=== PATIENT | male | born 1965 | race Caucasian/White ===

== ENCOUNTER 2017-03-01 08:11 | Emergency (ER) | payer OTHER ==
[~2017-03-01 08:11] MED LIST: ACTOS45 MG PO; GLIPIZIDE5 MG PO; GLUCOPHAGE500 MG PO; LEVAQUIN500 MG PO; LOVASTATIN10 M1 PO; PAXIL10 MG PO; PRILOSEC20 MG PO; PRINIVIL5 MG PO
--- NOTE | 2017-03-01 09:03 | DIAGNOSTIC IMAGING REPORT ---
PROCEDURE: XR FOOT 3 VIEWS - RIGHT INDICATION: TRAUMA/INJURY TECHNIQUE: Three views. COMPARISON: None. FINDINGS: Osseous structures, joint spaces and soft tissues are normal. IMPRESSION: 1. Normal right foot.
--- NOTE | 2017-03-01 09:58 | ED CLINICAL REPORT ---
Clinical Report - Physicians/Mid Levels [facility] [address] [place] [address] 03/01/2017 8:12 Patient: EDA SKY Time Seen: 09:00. Arrived- By private vehicle. Historian- patient. HISTORY OF PRESENT ILLNESS Chief Complaint: Injury to the right foot. The injury happened last night. The patient sustained a severe crush injury- dropped object on foot (ramp from I rental truck was dropped on his foot). Occurred on a street. Patient is experiencing severe pain. No other injury. REVIEW OF SYSTEMS The patient complains of pain on weight bearing. He has had swelling. He has had new onset of weakness of the right 1st toe (severe) and right 2nd toe (moderate). No tingling or numbness. All systems otherwise negative, except as recorded above. SOCIAL HISTORY Current every day light tobacco smoker (cigarette)- less than 1/2 a pack per day. No alcohol use or drug use. FAMILY HISTORY No significant family medical history. ADDITIONAL NOTES The nursing notes have been reviewed. PHYSICAL EXAM Vital Signs: 03/01/2017 08:18 BP: 159/89. HR: 82. RR: 18. O2 saturation: 100%. Temp: 97.6 F. Pain level now: 7/10. Have been reviewed. Appearance: Alert. Appears to be in pain. Head: Head atraumatic. Eyes: Pupils equal, round and reactive to light. ENT: Pharynx normal. Neck: Normal inspection. Neck supple. CVS: Normal heart rate and rhythm. Heart sounds normal. Respiratory: No respiratory distress. Breath sounds normal. Abdomen: No visible injury. Soft and nontender. Bowel sounds normal. No organomegaly. No mass. Back: ROM normal. Skin: Skin warm and dry. Extremities: Tip of right great toe: moderate tenderness and swelling nail partially avulsed. No subungual hematoma of right great toe. Tip of right second toe: moderate tenderness and mild swelling. Neuro, Vascular and Tendons: Vascular status intact. Tendon function intact. Gait: Limping gait. LABS, X-RAYS, AND EKG X-Rays: Right foot negative. The X-rays were interpreted by the radiologist and contemporaneously by me. PROGRESS AND PROCEDURES Course of Care: Patient is stable. Patient/family counseled. Old medical records reviewed. Disposition: Discharged. Condition: stable. CLINICAL IMPRESSION Contusion to the right foot, right great toe with toenail injury and right 2nd toe with toenail injury. INSTRUCTIONS Apply ice for 20 minutes four times a day. Don't apply ice directly to skin and don't use while asleep. Wear post-op shoe until released. No driving or operating machinery while taking medication. Sedative medication was given during your visit. You may walk and bear weight as tolerated. Warnings: COMPLICATIONS: Complications from this condition include: possible infection. Future problems may include infection, scarring, pain and deformity. INFECTION: Watch for signs of infection (increasing heat and redness, pus-like drainage, swelling, or increased pain). Return or see your doctor if these signs occur. It is important to follow up with a physician for further evaluation and treatment. INFECTION: Watch for signs of infection (increasing heat and redness, pus-like drainage, swelling, or increased pain). Return or see your doctor if these signs occur. TETANUS: You were given a tetanus shot during your visit. Make a note for future reference. GENERAL WARNINGS: Return or contact your physician immediately if your condition worsens or changes unexpectedly, if not improving as expected, or if other problems arise. Your Current Medications: CONTINUE TAKING THE FOLLOWING MEDICATIONS: Lantus Subcutaneous : 30 units at bedtime. Lipizide 10 mg daily*. Lisinopril 10 mg daily*. Lovastatin daily *. Metformin 1000 mg BID*. Omeprazole 20 mg bid*. Paxil Oral : 37.5 mg daily. Prescription Medications: Vicodin 5 mg / 300 mg: take 1 to 2 orally every 6 hours as needed for pain. Dispense fifteen (15). No refills. Substitution is permissible. Understanding of the discharge instructions verbalized by patient. Follow-up with: Mark White DPM, Podiatry, , [facility], [address] [place] [address], [address] [place] [address] Follow up in four days. Call for the next available appointment. (Electronically signed by Dylan Mcrae MD 03/03/2017 2:48)
--- NOTE | 2017-03-01 09:58 | ED ORDER SUMMARY ---
..... Patient: EDA SKY OrderSheet [facility] VisitID: [id number] [place] [address] 52y, M Registration Date/Time: 03/01/2017 ORDER SHEET Weight: 122.4 kg (stated) Allergies: No Known Drug Allergy GENERAL ORDERS: Foot 3V Right Urgent (08:28 03/01/2017 JSanders R.N. per protocol) (Ack 8:35 Heather) (9:01 JSanders R.N.) Orthopedic Shoe (09:41 03/01/2017 Ngozi TRUJILLO) (Ack 9:59 ALEXXanders R.N.) (10:06 JSanders R.N.) MEDICATION ORDERS: Hydrocodone-APAP PO 5/325 mg (NOW, HIGH ALERT MEDICATION) (09:33 03/01/2017 Ngozi TRUJILLO) (9:36 JSanders R.N.) Tdap IM 0.5 mL (NOW) (09:58 03/01/2017 Ngozi TRUJILLO) (Ack 10:01 ALEXXanders R.N.) (10:06 ALEXXanders R.N.) IV FLUIDS: ORDER SHEET NOTES: [Electronically signed by Isabel Ghosh R.N. (15:59 03/01/2017)] [Electronically signed by Dylan Mcrae MD (02:48 03/03/2017)] [Electronically locked/signed by Isabel Ghosh R.N. (15:59 03/01/2017)]
--- NOTE | 2017-03-01 09:58 | ED NURSING NOTES ---
Clinical Report - Nurses [facility] [address], [place] [address] 03/01/2017 8:12 [id number] Triage time 08:Mar 01 2017. Acuity: LEVEL 4. Chief Complaint: RIGHT LOWER EXTREMITY PAIN, SWELLING and REDNESS. Location of symptoms- (Helping a friend move last night and ramp fell on Right foot). 08:24 03/01/17. SEPSIS SCREEN: Sepsis Screen. Negative (no infection suspected/documented). ELOISA COMA SCORE: [place] Coma Scale: 15- eyes open spontaneously (4); best verbal response- oriented x 4 (5); best motor response- obeys commands (6). --08:24 Isabel Ghosh R.N. 08:18 03/01/17. BP: 159/89 (regular adult cuff) taken on the left arm, while sitting. HR: 82. RR: 18. O2 saturation: 100% on room air. Temp: 97.6 F (oral). Pain level now: 05/17. --08:24 Isabel Ghosh R.N. Weight: 122.4 kg stated. Height/Length: 74 inches Per Patient. BMI: 34.7. --08:22 Isabel Ghosh R.N. Medications Lantus Subcutaneous 30 units, at bedtime. Lipizide 10 mg daily. Lisinopril 10 mg daily. Lovastatin daily . Metformin 1000 mg BID. Omeprazole 20 mg bid. Paxil Oral 37.5 mg, daily. --08:21 Isabel Ghosh R.N. Allergies No Known Drug Allergy. --08:22 Isabel Ghosh R.N. History Arrived by private vehicle. Historian: patient. Injury occurred. This occurred last night. Occurred at friend's house. He has had trouble walking. Treatment TOWER HAND: Ice. PAST MEDICAL HX: Diabetes mellitus. Hypertension. Tetanus status: up-to-date. SOCIAL HX: Current every day light tobacco smoker- less than 1/2 a pack per day. No alcohol use or drug use. No infectious disease exposure. ABUSE ASSESSMENT: No report of abuse. --08:24 Isabel Ghosh R.N. PROBLEMS: Lumbar Radiculopathy. Head Injury. Hypercholesterolemia. Neck Pain. Depression. Chronic Back Pain. Back Injury. Neck Injury. Cervical Strain. Gastroesophageal Reflux. Insomnia. Upper Extremity Pain. Carpal Tunnel Syndrome. Hypertension. Diabetes Mellitus. --08:22 Isabel Ghosh R.N. ADDITIONAL SURGERIES: Left thumb partial amputation. Right ankle surgery after fx. Tonsillectomy & Adenoidectomy. --08:22 Isabel Ghosh R.N. Interventions ID band on patient. To treatment room. --08:24 Isabel Ghosh R.N. PHYSICAL ASSESSMENT 08:03/01/17. Ambulatory to room. GENERAL / NEURO / PSYCH: Oriented X 4. Appears in no acute distress. Appears in pain. EXTREMITIES: Small area of erythema with tenderness on the extremities. Extremity pulses are within normal limits. Extremities exhibit normal ROM. No lower extremity edema. Right big toe: tenderness, erythema and laceration with controlled bleeding. Right second toe: tenderness and erythema. SKIN: Skin is warm. --08:26 Isabel Ghosh R.N. NURSING PROGRESS NOTES 08:03/01/17. The plan of care for this patient has been created. Cold pack applied. Extremity elevated. Reassurance given. Two patient identifiers checked. Call light placed in reach. Side rails up x 1. Bed placed in lowest position. Brakes of bed on. Patient ready for evaluation- chart flagged and ED physician notified. Care transferred and report given. --08:26 Isabel Ghosh R.N. ( Xray in with patient). --08:45 Isabel Ghosh R.N. 09:02 03/01/17. ( Xray is finished with patient). --09:02 Isabel Ghosh R.N. 09:23 03/01/17. ( Patient resting, anxious to leave. Offered blanket, he declined). --09:23 Isabel Ghosh R.N. 09:29 03/01/17. --09:29 Isabel Ghosh R.N. 09:28 03/01/17. BP: 131/77 (regular adult cuff) taken on the left arm, while sitting. HR: 87. RR: 18 (regular). O2 saturation: 100% on room air. Pain level now: 06/17. --09:29 Isabel Ghosh R.N. 09:36 03/01/2017 Hydrocodone-APAP (Hydrocodone-Acetaminophen) PO 5/325 mg Tablets 1 tab given. Allergies verified, confirmed 5 rights and sedative warning given to the patient. --09:36 Isabel Ghosh R.N. 09:37 03/01/17. ( Patients right foot placed in basin with hibiclense and normal saline to cleanse foot). --09:37 Isabel Ghosh R.N. 10:05 03/01/2017 TDAP IM 0.5 mL given. (Lot#: [id number], expiration date: 08/15/2018, Work Checker: [employer] pasteur). Given in the right deltoid. Allergies verified and confirmed 5 rights. Vaccine information statement provided to the patient. --10:06 Isabel Ghosh R.N. Ortho shoe applied to right foot by tech; distal pulses intact, sensation intact and motor function within normal limits. --10:07 Colleen Jennyfer. DISPOSITION / DISCHARGE Departure time: 1010 AM. Condition at departure: improved and stable. The goals identified in the patient's plan of care were met. No learning barriers present. Discharge instructions provided and reviewed with the patient. Reviewed medication(s) side effects, precautions, dosing and course information. Prescription(s) given to the patient. Reviewed foot care instructions. Activity restrictions (rest) reviewed. Work note given. Patient verbalized understanding. Written instructions provided in Thai. No warning instructions or follow up contact number given. The patient was discharged by the physician. He was discharged home and unaccompanied at time of discharge. He left the Emergency Department ambulatory and via private vehicle. Patient driving. FALL RISK ASSESSMENT: Fall risk assessment completed. No fall risk identified. --10:10 Awilda Sin R.N. 10:05 03/01/17. BP: 132/77 (regular adult cuff) taken on the left arm, via an automated monitor, while standing. HR: 89. RR: 16 (regular and unlabored). O2 saturation: 97% on room air. Temp: 98 F (oral). Pain level now: 02/15. --10:10 Awilda Sin R.N. Locked/Released at 03/01/2017 15:59 by Isabel Ghosh R.N.
--- NOTE | 2017-03-01 09:58 | ED CLINICAL REPORT ---
Clinical Report - Physicians/Mid Levels [facility] [address] [place] [address] 03/01/2017 8:12 Patient: EDA SKY Time Seen: 09:00. Arrived- By private vehicle. Historian- patient. HISTORY OF PRESENT ILLNESS Chief Complaint: Injury to the right foot. The injury happened last night. The patient sustained a severe crush injury- dropped object on foot (ramp from I rental truck was dropped on his foot). Occurred on a street. Patient is experiencing severe pain. No other injury. REVIEW OF SYSTEMS The patient complains of pain on weight bearing. He has had swelling. He has had new onset of weakness of the right 1st toe (severe) and right 2nd toe (moderate). No tingling or numbness. All systems otherwise negative, except as recorded above. SOCIAL HISTORY Current every day light tobacco smoker (cigarette)- less than 1/2 a pack per day. No alcohol use or drug use. FAMILY HISTORY No significant family medical history. ADDITIONAL NOTES The nursing notes have been reviewed. PHYSICAL EXAM Vital Signs: 03/01/2017 08:18 BP: 159/89. HR: 82. RR: 18. O2 saturation: 100%. Temp: 97.6 F. Pain level now: 7/10. Have been reviewed. Appearance: Alert. Appears to be in pain. Head: Head atraumatic. Eyes: Pupils equal, round and reactive to light. ENT: Pharynx normal. Neck: Normal inspection. Neck supple. CVS: Normal heart rate and rhythm. Heart sounds normal. Respiratory: No respiratory distress. Breath sounds normal. Abdomen: No visible injury. Soft and nontender. Bowel sounds normal. No organomegaly. No mass. Back: ROM normal. Skin: Skin warm and dry. Extremities: Tip of right great toe: moderate tenderness and swelling nail partially avulsed. No subungual hematoma of right great toe. Tip of right second toe: moderate tenderness and mild swelling. Neuro, Vascular and Tendons: Vascular status intact. Tendon function intact. Gait: Limping gait. LABS, X-RAYS, AND EKG X-Rays: Right foot negative. The X-rays were interpreted by the radiologist and contemporaneously by me. PROGRESS AND PROCEDURES Course of Care: Patient is stable. Patient/family counseled. Old medical records reviewed. Disposition: Discharged. Condition: stable. CLINICAL IMPRESSION Contusion to the right foot, right great toe with toenail injury and right 2nd toe with toenail injury. INSTRUCTIONS Apply ice for 20 minutes four times a day. Don't apply ice directly to skin and don't use while asleep. Wear post-op shoe until released. No driving or operating machinery while taking medication. Sedative medication was given during your visit. You may walk and bear weight as tolerated. Warnings: COMPLICATIONS: Complications from this condition include: possible infection. Future problems may include infection, scarring, pain and deformity. INFECTION: Watch for signs of infection (increasing heat and redness, pus-like drainage, swelling, or increased pain). Return or see your doctor if these signs occur. It is important to follow up with a physician for further evaluation and treatment. INFECTION: Watch for signs of infection (increasing heat and redness, pus-like drainage, swelling, or increased pain). Return or see your doctor if these signs occur. TETANUS: You were given a tetanus shot during your visit. Make a note for future reference. GENERAL WARNINGS: Return or contact your physician immediately if your condition worsens or changes unexpectedly, if not improving as expected, or if other problems arise. Your Current Medications: CONTINUE TAKING THE FOLLOWING MEDICATIONS: Lantus Subcutaneous : 30 units at bedtime. Lipizide 10 mg daily*. Lisinopril 10 mg daily*. Lovastatin daily *. Metformin 1000 mg BID*. Omeprazole 20 mg bid*. Paxil Oral : 37.5 mg daily. Prescription Medications: Vicodin 5 mg / 300 mg: take 1 to 2 orally every 6 hours as needed for pain. Dispense fifteen (15). No refills. Substitution is permissible. Understanding of the discharge instructions verbalized by patient. Follow-up with: Mark White DPM, Podiatry, , [facility], [address] [place] [address], [address] [place] [address] Follow up in four days. Call for the next available appointment. (Electronically signed by Dylan Mcrae MD 03/03/2017 2:48)
--- NOTE | 2017-03-01 09:58 | ED NURSING NOTES ---
Clinical Report - Nurses [facility] [address], [place] [address] 03/01/2017 8:12 [id number] Triage time 08:Mar 01 2017. Acuity: LEVEL 4. Chief Complaint: RIGHT LOWER EXTREMITY PAIN, SWELLING and REDNESS. Location of symptoms- (Helping a friend move last night and ramp fell on Right foot). 08:24 03/01/17. SEPSIS SCREEN: Sepsis Screen. Negative (no infection suspected/documented). ELOISA COMA SCORE: [place] Coma Scale: 15- eyes open spontaneously (4); best verbal response- oriented x 4 (5); best motor response- obeys commands (6). --08:24 Isabel Ghsoh R.N. 08:18 03/01/17. BP: 159/89 (regular adult cuff) taken on the left arm, while sitting. HR: 82. RR: 18. O2 saturation: 100% on room air. Temp: 97.6 F (oral). Pain level now: 05/17. --08:24 Isabel Ghosh R.N. Weight: 122.4 kg stated. Height/Length: 74 inches Per Patient. BMI: 34.7. --08:22 Isabel Ghosh R.N. Medications Lantus Subcutaneous 30 units, at bedtime. Lipizide 10 mg daily. Lisinopril 10 mg daily. Lovastatin daily . Metformin 1000 mg BID. Omeprazole 20 mg bid. Paxil Oral 37.5 mg, daily. --08:21 Isabel Ghosh R.N. Allergies No Known Drug Allergy. --08:22 Isabel Ghosh R.N. History Arrived by private vehicle. Historian: patient. Injury occurred. This occurred last night. Occurred at friend's house. He has had trouble walking. 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 PAST MEDICAL HX: Diabetes mellitus. Hypertension. Tetanus status: up-to-date. SOCIAL HX: Current every day light tobacco smoker- less than 1/2 a pack per day. No alcohol use or drug use. No infectious disease exposure. ABUSE ASSESSMENT: No report of abuse. --08:24 Isabel Ghosh R.N. PROBLEMS: Lumbar Radiculopathy. Head Injury. Hypercholesterolemia. Neck Pain. Depression. Chronic Back Pain. Back Injury. Neck Injury. Cervical Strain. Gastroesophageal Reflux. Insomnia. Upper Extremity Pain. Carpal Tunnel Syndrome. Hypertension. Diabetes Mellitus. --08:22 Isabel Ghosh R.N. ADDITIONAL SURGERIES: Left thumb partial amputation. Right ankle surgery after fx. Tonsillectomy & Adenoidectomy. --08:22 Isabel Ghosh R.N. Interventions ID band on patient. To treatment room. --08:24 Isabel Ghosh R.N. PHYSICAL ASSESSMENT 08:03/01/17. Ambulatory to room. GENERAL / NEURO / PSYCH: Oriented X 4. Appears in no acute distress. Appears in pain. EXTREMITIES: Small area of erythema with tenderness on the extremities. Extremity pulses are within normal limits. Extremities exhibit normal ROM. No lower extremity edema. Right big toe: tenderness, erythema and laceration with controlled bleeding. Right second toe: tenderness and erythema. SKIN: Skin is warm. --08:26 Isabel Ghosh R.N. NURSING PROGRESS NOTES 08:03/01/17. The plan of care for this patient has been created. Cold pack applied. Extremity elevated. Reassurance given. Two patient identifiers checked. Call light placed in reach. Side rails up x 1. Bed placed in lowest position. Brakes of bed on. Patient ready for evaluation- chart flagged and ED physician notified. Care transferred and report given. --08:26 Isabel Ghosh R.N. ( Xray in with patient). --08:45 Isabel Ghosh R.N. 09:02 03/01/17. ( Xray is finished with patient). --09:02 Isabel Ghosh R.N. 09:23 03/01/17. ( Patient resting, anxious to leave. Offered blanket, he declined). --09:23 Isabel Ghosh R.N. 09:29 03/01/17. --09:29 Isabel Ghosh R.N. 09:28 03/01/17. BP: 131/77 (regular adult cuff) taken on the left arm, while sitting. HR: 87. RR: 18 (regular). O2 saturation: 100% on room air. Pain level now: 06/17. --09:29 Isabel Ghosh R.N. 09:36 03/01/2017 Hydrocodone-APAP (Hydrocodone-Acetaminophen) PO 5/325 mg Tablets 1 tab given. Allergies verified, confirmed 5 rights and sedative warning given to the patient. --09:36 Isabel Ghosh R.N. 09:37 03/01/17. ( Patients right foot placed in basin with hibiclense and normal saline to cleanse foot). --09:37 Isabel Ghosh R.N. 10:05 03/01/2017 TDAP IM 0.5 mL given. (Lot#: [id number], expiration date: 08/15/2018, Tire Tester: [employer]pp[employer] pasteur). Given in the right deltoid. Allergies verified and confirmed 5 rights. Vaccine information statement provided to the patient. --10:06 Isabel Ghosh R.N. Ortho shoe applied to right foot by tech; distal pulses intact, sensation intact and motor function within normal limits. --10:07 Colleen Jennyfer. DISPOSITION / DISCHARGE Departure time: 1010 AM. Condition at departure: improved and stable. The goals identified in the patient's plan of care were met. No learning barriers present. Discharge instructions provided and reviewed with the patient. Reviewed medication(s) side effects, precautions, dosing and course information. Prescription(s) given to the patient. Reviewed foot care instructions. Activity restrictions (rest) reviewed. Work note given. Patient verbalized understanding. Written instructions provided in Persian. No warning instructions or follow up contact number given. The patient was discharged by the physician. He was discharged home and unaccompanied at time of discharge. He left the Emergency Department ambulatory and via private vehicle. Patient driving. FALL RISK ASSESSMENT: Fall risk assessment completed. No fall risk identified. --10:10 Awilda Sin R.N. 10:05 03/01/17. BP: 132/77 (regular adult cuff) taken on the left arm, via an automated monitor, while standing. HR: 89. RR: 16 (regular and unlabored). O2 saturation: 97% on room air. Temp: 98 F (oral). Pain level now: 02/15. --10:10 Awilda Sin R.N. Locked/Released at 03/01/2017 15:59 by Isabel Ghosh R.N.
--- NOTE | 2017-03-01 09:58 | ED ORDER SUMMARY ---
..... Patient: EDA SKY OrderSheet [facility] VisitID: [id number] [place] [address] 52y, M Registration Date/Time: 03/01/2017 ORDER SHEET Weight: 122.4 kg (stated) Allergies: No Known Drug Allergy GENERAL ORDERS: Foot 3V Right Urgent (08:28 03/01/2017 JSanders R.N. per protocol) (Ack 8:35 Heather) (9:01 JSanders R.N.) Orthopedic Shoe (09:41 03/01/2017 Ngozi TRUJILLO) (Ack 9:59 ALEXXanders R.N.) (10:06 JSanders R.N.) MEDICATION ORDERS: Hydrocodone-APAP PO 5/325 mg (NOW, HIGH ALERT MEDICATION) (09:33 03/01/2017 Ngozi TRUJILLO) (9:36 JSanders R.N.) Tdap IM 0.5 mL (NOW) (09:58 03/01/2017 Ngozi TRUJILLO) (Ack 10:01 ALEXXanders R.N.) (10:06 ALEXXanders R.N.) IV FLUIDS: ORDER SHEET NOTES: [Electronically signed by Isabel Ghosh R.N. (15:59 03/01/2017)] [Electronically signed by Dylan Mcrae MD (02:48 03/03/2017)] [Electronically locked/signed by Isabel Ghosh R.N. (15:59 03/01/2017)]
--- NOTE | 2017-03-03 02:48 | ED MED RECONCILIATION SUMMARY ---
Patient: EDA SKY Medication Reconciliation Report [facility] VisitID: [id number] [place] [address] 52y, M Registration Date/Time: 03/01/2017 Weight: 122.4 kg Height/Length: 74 in. BMI: 34.7 ALLERGIES: No Known Drug Allergy The patient's Home Medications are listed below: CONTINUE TAKING THE FOLLOWING MEDICATIONS: Lantus Subcutaneous 30 units, at bedtime Lipizide 10 mg daily Lisinopril 10 mg daily Lovastatin daily Metformin 1000 mg BID Omeprazole 20 mg bid Paxil Oral 37.5 mg, daily The source(s) of the original Home Medication information: Not obtained. The following Medications were given to the patient in the Emergency Department: Hydrocodone-APAP [PO] PO 1 tab, administered: 03/01/2017 9:36:00 AM TDAP [IM] IM 0.5 mL, administered: 03/01/2017 10:05:00 AM The following Medications were prescribed to the patient: Vicodin 5 mg / 300 mg: take 1 to 2 orally every 6 hours as needed for pain. Dispense fifteen (15). No refills. Substitution is permissible. -- Dylan Mcrae MD
--- NOTE | 2017-03-03 02:48 | ED MED RECONCILIATION SUMMARY ---
Patient: EDA SKY Medication Reconciliation Report [facility] VisitID: [id number] [place] [address] 52y, M Registration Date/Time: 03/01/2017 Weight: 122.4 kg Height/Length: 74 in. BMI: 34.7 ALLERGIES: No Known Drug Allergy The patient's Home Medications are listed below: CONTINUE TAKING THE FOLLOWING MEDICATIONS: Lantus Subcutaneous 30 units, at bedtime Lipizide 10 mg daily Lisinopril 10 mg daily Lovastatin daily Metformin 1000 mg BID Omeprazole 20 mg bid Paxil Oral 37.5 mg, daily The source(s) of the original Home Medication information: Not obtained. The following Medications were given to the patient in the Emergency Department: Hydrocodone-APAP [PO] PO 1 tab, administered: 03/01/2017 9:36:00 AM TDAP [IM] IM 0.5 mL, administered: 03/01/2017 10:05:00 AM The following Medications were prescribed to the patient: Vicodin 5 mg / 300 mg: take 1 to 2 orally every 6 hours as needed for pain. Dispense fifteen (15). No refills. Substitution is permissible. -- Dylan Mcrae MD
--- NOTE | 2017-03-03 02:48 | ED MAR SUMMARY ---
..... Medication Administration Record Located Within [facility] [address] [place] [address] Patient: EDA SKY Visit ID: [id number] 52y, M Weight: 122.4 kg Height/Length: 74 in BMI: 34.7 ALLERGIES: No Known Drug Allergy Given 09:36 03/01/2017 Isabel Ghosh R.N. Medication Administered: HYDROCODONE-APAP [PO] (HYDROCODONE-ACETAMINOPHEN), Dose: 1 tab 5/325 mg Tablets PO. Medication Ordered: Hydrocodone-APAP PO 5/325 mg (NOW, HIGH ALERT MEDICATION). Given 10:05 03/01/2017 Isabel Ghosh R.N. Medication Administered: TDAP [IM], Dose: 0.5 mL IM. Medication Ordered: Tdap IM 0.5 mL (NOW).
--- NOTE | 2017-03-03 02:48 | ED DISCHARGE INSTRUCTIONS ---
Patient: EDA SKY General Instructions [facility] VisitID: [id number] [place] [id number] 52y, M Registration Date/Time: 03/01/2017 Contusion to the right foot, right great toe with toenail injury and right 2nd toe with toenail injury. INSTRUCTIONS Apply ice for 20 minutes four times a day. Don't apply ice directly to skin and don't use while asleep. Wear post-op shoe until released. No driving or operating machinery while taking medication. Sedative medication was given during your visit. You may walk and bear weight as tolerated. Warnings: COMPLICATIONS: Complications from this condition include: possible infection. Future problems may include infection, scarring, pain and deformity. INFECTION: Watch for signs of infection (increasing heat and redness, pus-like drainage, swelling, or increased pain). Return or see your doctor if these signs occur. It is important to follow up with a physician for further evaluation and treatment. INFECTION: Watch for signs of infection (increasing heat and redness, pus-like drainage, swelling, or increased pain). Return or see your doctor if these signs occur. TETANUS: You were given a tetanus shot during your visit. Make a note for future reference. GENERAL WARNINGS: Return or contact your physician immediately if your condition worsens or changes unexpectedly, if not improving as expected, or if other problems arise. Your Current Medications: CONTINUE TAKING THE FOLLOWING MEDICATIONS: Lantus Subcutaneous : 30 units at bedtime. Lipizide 10 mg daily*. Lisinopril 10 mg daily*. Lovastatin daily *. Metformin 1000 mg BID*. Omeprazole 20 mg bid*. Paxil Oral : 37.5 mg daily. Prescription Medications: Vicodin 5 mg / 300 mg: take 1 to 2 orally every 6 hours as needed for pain. Dispense fifteen (15). No refills. Substitution is permissible. Understanding of the discharge instructions verbalized by patient. Follow-up with: Mark White DPM, Podiatry, , [facility], [address] [place] [address], [address], [place] [address] Follow up in four days. Call for the next available appointment. ADDITIONAL INFORMATION Contusion: Foot You have a CONTUSION of your foot. This causes local pain, swelling and sometimes bruising. There are no broken bones. This injury may take from a few days to a few weeks to heal. Home Care: 1) Keep your LEG elevated to reduce pain and swelling. This is very important during the first 48 hours. If walking causes pain, stay off the injured leg until you can walk without pain. 2) If CRUTCHES have been advised, do not bear full weight on the injured leg until you can do so without pain. You may return to sports when you are able to hop and run on the injured leg without pain. 3) Make an ice pack (ice cubes in a plastic bag, wrapped in a towel) and apply for 20 minutes every 1-2 hours the first day. Continue this 3-4 times a day until the swelling goes down. 4) You may use acetaminophen (Tylenol) or ibuprofen (Motrin, Advil) to control pain, unless another pain medicine was prescribed. [ NOTE : If you have chronic liver or kidney disease or ever had a stomach ulcer or GI bleeding, talk with your doctor before using these medicines.] Follow Up with your doctor or this facility if you are not starting to improve within the next THREE days. [NOTE: If X-rays were taken, they will be reviewed by a radiologist. You will be notified of any new findings that may affect your care.] Get Prompt Medical Attention if any of the following occur: -- Pain or swelling increases -- Toes become cold, blue, numb or tingly -- Redness, warmth or drainage from the skin Diphtheria Toxoid Adsorbed, Pertussis Vaccine, Acellular (Adsorbed), Tetanus Toxoid, Adsorbed Suspension for injection What is this medicine? DIPHTHERIA and TETANUS TOXOIDS; PERTUSSIS VACCINE (dif THEER ee and TET n us TOK soids; per TUS iss vak SEEN) is used to prevent diphtheria, tetanus, and pertussis infections. How should I use this medicine? This vaccine is for injection into a muscle. It is given by a health career development consultant. A copy of Vaccine Information Statements will be given before each vaccination. Read this sheet carefully each time. The sheet may change frequently. Talk to your dinner cook regarding the use of this vaccine in children. While the DTP vaccine may be given to children ages 6 weeks to 7 years and the Tdap vaccine may be given to children at least 10 years old, precautions do apply. What side effects may I notice from receiving this medicine? Side effects that you should report to your doctor or health career development consultant as soon as possible: allergic reactions like skin rash, itching or hives, swelling of the face, lips, or tongue breathing problems fever of 103 degrees F or more flu-like symptoms inconsolable crying infection pain, tingling, numbness in the hands or feet seizures swelling of arm or leg that was injected unusually weak or tired Side effects that usually do not require immediate medical attention (report these side effects to your doctor or health career development consultant if they continue or are bothersome): fussy, irritable loss of appetite fever of 102 degrees F or less pain, tenderness, redness, swelling, or a 'knot' at site where injected vomiting What may interact with this medicine? immune globulin medicines that suppress your immune function like adalimumab, anakinra, infliximab medicines to treat cancer medicines that treat or prevent blood clots like warfarin, enoxaparin, and dalteparin steroid medicines like prednisone or cortisone What if I miss a dose? It is important not to miss your dose. Call your doctor or health career development consultant if you are unable to keep an appointment. Where should I keep my medicine? This drug is given in a hospital or clinic and will not be stored at home. What should I tell my health care provider before I take this medicine? They need to know if you have any of these conditions: blood disorders like hemophilia fever or infection immune system problems neurologic disease seizures an unusual or allergic reaction to vaccines, thimerosal, latex, other medicines, foods, dyes, or preservatives or trying to get breast-feeding What should I watch for while using this medicine? See your health care provider for all shots of this vaccine as directed. To have protection from infection, you must have 3 shots of this vaccine plus boosters as needed. Tell your doctor right away if you have any serious or unusual side effects after getting this vaccine. Hydrocodone Bitartrate, Acetaminophen Oral tablet What is this medicine? ACETAMINOPHEN; HYDROCODONE (a set a JONAH linus fen; luis alfredo droe KOE done) is a pain reliever. It is used to treat mild to moderate pain. How should I use this medicine? Take this medicine by mouth. Swallow it with a full glass of water. Follow the directions on the prescription label. If the medicine upsets your stomach, take the medicine with food or milk. Do not take more than you are told to take. Talk to your dinner cook regarding the use of this medicine in children. This medicine is not approved for use in children. What side effects may I notice from receiving this medicine? Side effects that you should report to your doctor or health career development consultant as soon as possible: allergic reactions like skin rash, itching or hives, swelling of the face, lips, or tongue breathing problems confusion feeling faint or lightheaded, falls stomach pain yellowing of the eyes or skin Side effects that usually do not require medical attention (report to your doctor or health career development consultant if they continue or are bothersome): nausea, vomiting stomach upset What may interact with this medicine? alcohol antihistamines isoniazid medicines for depression, anxiety, or psychotic disturbances medicines for sleep muscle relaxants naltrexone narcotic medicines (opiates) for pain phenobarbital ritonavir tramadol What if I miss a dose? If you miss a dose, take it as soon as you can. If it is almost time for your next dose, take only that dose. Do not take double or extra doses. Where should I keep my medicine? Keep out of the reach of children. This medicine can be abused. Keep your medicine in a safe place to protect it from theft. Do not share this medicine with anyone. Selling or giving away this medicine is dangerous and against the law. Store at room temperature between 15 and 30 degrees C (59 and 86 degrees F). Protect from light. Keep container tightly closed. Throw away any unused medicine after the expiration date. Discard unused medicine and used packaging carefully. Pets and children can be harmed if they find used or lost packages. What should I tell my health care provider before I take this medicine? They need to know if you have any of these conditions: brain tumor Crohn's disease, inflammatory bowel disease, or ulcerative colitis drink more than 3 alcohol-containing drinks per day drug abuse or addiction head injury heart or circulation problems kidney disease or problems going to the bathroom liver disease lung disease, asthma, or breathing problems an unusual or allergic reaction to acetaminophen, hydrocodone, other opioid analgesics, other medicines, foods, dyes, or preservatives or trying to get breast-feeding What should I watch for while using this medicine? Tell your doctor or health career development consultant if your pain does not go away, if it gets worse, or if you have new or a different type of pain. You may develop tolerance to the medicine. Tolerance means that you will need a higher dose of the medicine for pain relief. Tolerance is normal and is expected if you take the medicine for a long time. Do not suddenly stop taking your medicine because you may develop a severe reaction. Your body becomes used to the medicine. This does NOT mean you are addicted. Addiction is a behavior related to getting and using a drug for a non-medical reason. If you have pain, you have a medical reason to take pain medicine. Your doctor will tell you how much medicine to take. If your doctor wants you to stop the medicine, the dose will be slowly lowered over time to avoid any side effects. You may get drowsy or dizzy when you first start taking the medicine or change doses. Do not drive, use machinery, or do anything that may be dangerous until you know how the medicine affects you. Stand or sit up slowly. There are different types of narcotic medicines (opiates) for pain. If you take more than one type at the same time, you may have more side effects. Give your health care provider a list of all medicines you use. Your doctor will tell you how much medicine to take. Do not take more medicine than directed. Call emergency for help if you have problems breathing. The medicine will cause constipation. Try to have a bowel movement at least every 2 to 3 days. If you do not have a bowel movement for 3 days, call your doctor or health career development consultant. Too much acetaminophen can be very dangerous. Do not take Tylenol (acetaminophen) or medicines that contain acetaminophen with this medicine. Many non-prescription medicines contain acetaminophen. Always read the labels carefully. You have been given the following additional information: Contusion, Foot Diphtheria Toxoid Adsorbed, Pertussis Vaccine, Acellular (Adsorbed), Tetanus Toxoid, Adsorbed Suspension for injection Hydrocodone Bitartrate, Acetaminophen Oral tablet No driving or operating machinery while taking medication. Sedative medication was given during your visit. You may walk and bear weight as tolerated. (Electronically signed by Dylan Mcrae MD 03/03/2017 2:48)
--- NOTE | 2017-03-03 02:48 | ED MAR SUMMARY ---
..... Medication Administration Record [facility] [address] [place] [address] Patient: EDA SKY Visit ID: [id number] 52y, M Weight: 122.4 kg Height/Length: 74 in BMI: 34.7 ALLERGIES: No Known Drug Allergy Given 09:36 03/01/2017 Isabel Ghosh R.N. Medication Administered: HYDROCODONE-APAP [PO] (HYDROCODONE-ACETAMINOPHEN), Dose: 1 tab 5/325 mg Tablets PO. Medication Ordered: Hydrocodone-APAP PO 5/325 mg (NOW, HIGH ALERT MEDICATION). Given 10:05 03/01/2017 Isabel Ghosh R.N. Medication Administered: TDAP [IM], Dose: 0.5 mL IM. Medication Ordered: Tdap IM 0.5 mL (NOW).
--- NOTE | 2017-03-03 02:48 | ED DISCHARGE INSTRUCTIONS ---
Patient: EDA SKY General Instructions [facility] VisitID: [id number] [place] [id number] 52y, M Registration Date/Time: 03/01/2017 Contusion to the right foot, right great toe with toenail injury and right 2nd toe with toenail injury. INSTRUCTIONS Apply ice for 20 minutes four times a day. Don't apply ice directly to skin and don't use while asleep. Wear post-op shoe until released. No driving or operating machinery while taking medication. Sedative medication was given during your visit. You may walk and bear weight as tolerated. Warnings: COMPLICATIONS: Complications from this condition include: possible infection. Future problems may include infection, scarring, pain and deformity. INFECTION: Watch for signs of infection (increasing heat and redness, pus-like drainage, swelling, or increased pain). Return or see your doctor if these signs occur. It is important to follow up with a physician for further evaluation and treatment. INFECTION: Watch for signs of infection (increasing heat and redness, pus-like drainage, swelling, or increased pain). Return or see your doctor if these signs occur. TETANUS: You were given a tetanus shot during your visit. Make a note for future reference. GENERAL WARNINGS: Return or contact your physician immediately if your condition worsens or changes unexpectedly, if not improving as expected, or if other problems arise. Your Current Medications: CONTINUE TAKING THE FOLLOWING MEDICATIONS: Lantus Subcutaneous : 30 units at bedtime. Lipizide 10 mg daily*. Lisinopril 10 mg daily*. Lovastatin daily *. Metformin 1000 mg BID*. Omeprazole 20 mg bid*. Paxil Oral : 37.5 mg daily. Prescription Medications: Vicodin 5 mg / 300 mg: take 1 to 2 orally every 6 hours as needed for pain. Dispense fifteen (15). No refills. Substitution is permissible. Understanding of the discharge instructions verbalized by patient. Follow-up with: Mark White DPM, Podiatry, , [facility], [address] [place] [address], [address], [place] [address] Follow up in four days. Call for the next available appointment. ADDITIONAL INFORMATION Contusion: Foot You have a CONTUSION of your foot. This causes local pain, swelling and sometimes bruising. There are no broken bones. This injury may take from a few days to a few weeks to heal. Home Care: 1) Keep your LEG elevated to reduce pain and swelling. This is very important during the first 48 hours. If walking causes pain, stay off the injured leg until you can walk without pain. 2) If CRUTCHES have been advised, do not bear full weight on the injured leg until you can do so without pain. You may return to sports when you are able to hop and run on the injured leg without pain. 3) Make an ice pack (ice cubes in a plastic bag, wrapped in a towel) and apply for 20 minutes every 1-2 hours the first day. Continue this 3-4 times a day until the swelling goes down. 4) You may use acetaminophen (Tylenol) or ibuprofen (Motrin, Advil) to control pain, unless another pain medicine was prescribed. [ NOTE : If you have chronic liver or kidney disease or ever had a stomach ulcer or GI bleeding, talk with your doctor before using these medicines.] Follow Up with your doctor or this facility if you are not starting to improve within the next THREE days. [NOTE: If X-rays were taken, they will be reviewed by a radiologist. You will be notified of any new findings that may affect your care.] Get Prompt Medical Attention if any of the following occur: -- Pain or swelling increases -- Toes become cold, blue, numb or tingly -- Redness, warmth or drainage from the skin Diphtheria Toxoid Adsorbed, Pertussis Vaccine, Acellular (Adsorbed), Tetanus Toxoid, Adsorbed Suspension for injection What is this medicine? DIPHTHERIA and TETANUS TOXOIDS; PERTUSSIS VACCINE (dif THEER ee and TET n us TOK soids; per TUS iss vak SEEN) is used to prevent diphtheria, tetanus, and pertussis infections. How should I use this medicine? This vaccine is for injection into a muscle. It is given by a health lawn care professional. A copy of Vaccine Information Statements will be given before each vaccination. Read this sheet carefully each time. The sheet may change frequently. Talk to your glass engraver regarding the use of this vaccine in children. While the DTP vaccine may be given to children ages 6 weeks to 7 years and the Tdap vaccine may be given to children at least 10 years old, precautions do apply. What side effects may I notice from receiving this medicine? Side effects that you should report to your doctor or health lawn care professional as soon as possible: allergic reactions like skin rash, itching or hives, swelling of the face, lips, or tongue breathing problems fever of 103 degrees F or more flu-like symptoms inconsolable crying infection pain, tingling, numbness in the hands or feet seizures swelling of arm or leg that was injected unusually weak or tired Side effects that usually do not require immediate medical attention (report these side effects to your doctor or health lawn care professional if they continue or are bothersome): fussy, irritable loss of appetite fever of 102 degrees F or less pain, tenderness, redness, swelling, or a 'knot' at site where injected vomiting What may interact with this medicine? immune globulin medicines that suppress your immune function like adalimumab, anakinra, infliximab medicines to treat cancer medicines that treat or prevent blood clots like warfarin, enoxaparin, and dalteparin steroid medicines like prednisone or cortisone What if I miss a dose? It is important not to miss your dose. Call your doctor or health lawn care professional if you are unable to keep an appointment. Where should I keep my medicine? This drug is given in a hospital or clinic and will not be stored at home. What should I tell my health care provider before I take this medicine? They need to know if you have any of these conditions: blood disorders like hemophilia fever or infection immune system problems neurologic disease seizures an unusual or allergic reaction to vaccines, thimerosal, latex, other medicines, foods, dyes, or preservatives or trying to get breast-feeding What should I watch for while using this medicine? See your health care provider for all shots of this vaccine as directed. To have protection from infection, you must have 3 shots of this vaccine plus boosters as needed. Tell your doctor right away if you have any serious or unusual side effects after getting this vaccine. Hydrocodone Bitartrate, Acetaminophen Oral tablet What is this medicine? ACETAMINOPHEN; HYDROCODONE (a set a JONAH linus fen; luis alfredo droe KOE done) is a pain reliever. It is used to treat mild to moderate pain. How should I use this medicine? Take this medicine by mouth. Swallow it with a full glass of water. Follow the directions on the prescription label. If the medicine upsets your stomach, take the medicine with food or milk. Do not take more than you are told to take. Talk to your glass engraver regarding the use of this medicine in children. This medicine is not approved for use in children. What side effects may I notice from receiving this medicine? Side effects that you should report to your doctor or health lawn care professional as soon as possible: allergic reactions like skin rash, itching or hives, swelling of the face, lips, or tongue breathing problems confusion feeling faint or lightheaded, falls stomach pain yellowing of the eyes or skin Side effects that usually do not require medical attention (report to your doctor or health lawn care professional if they continue or are bothersome): nausea, vomiting stomach upset What may interact with this medicine? alcohol antihistamines isoniazid medicines for depression, anxiety, or psychotic disturbances medicines for sleep muscle relaxants naltrexone narcotic medicines (opiates) for pain phenobarbital ritonavir tramadol What if I miss a dose? If you miss a dose, take it as soon as you can. If it is almost time for your next dose, take only that dose. Do not take double or extra doses. Where should I keep my medicine? Keep out of the reach of children. This medicine can be abused. Keep your medicine in a safe place to protect it from theft. Do not share this medicine with anyone. Selling or giving away this medicine is dangerous and against the law. Store at room temperature between 15 and 30 degrees C (59 and 86 degrees F). Protect from light. Keep container tightly closed. Throw away any unused medicine after the expiration date. Discard unused medicine and used packaging carefully. Pets and children can be harmed if they find used or lost packages. What should I tell my health care provider before I take this medicine? They need to know if you have any of these conditions: brain tumor Crohn's disease, inflammatory bowel disease, or ulcerative colitis drink more than 3 alcohol-containing drinks per day drug abuse or addiction head injury heart or circulation problems kidney disease or problems going to the bathroom liver disease lung disease, asthma, or breathing problems an unusual or allergic reaction to acetaminophen, hydrocodone, other opioid analgesics, other medicines, foods, dyes, or preservatives or trying to get breast-feeding What should I watch for while using this medicine? Tell your doctor or health lawn care professional if your pain does not go away, if it gets worse, or if you have new or a different type of pain. You may develop tolerance to the medicine. Tolerance means that you will need a higher dose of the medicine for pain relief. Tolerance is normal and is expected if you take the medicine for a long time. Do not suddenly stop taking your medicine because you may develop a severe reaction. Your body becomes used to the medicine. This does NOT mean you are addicted. Addiction is a behavior related to getting and using a drug for a non-medical reason. If you have pain, you have a medical reason to take pain medicine. Your doctor will tell you how much medicine to take. If your doctor wants you to stop the medicine, the dose will be slowly lowered over time to avoid any side effects. You may get drowsy or dizzy when you first start taking the medicine or change doses. Do not drive, use machinery, or do anything that may be dangerous until you know how the medicine affects you. Stand or sit up slowly. There are different types of narcotic medicines (opiates) for pain. If you take more than one type at the same time, you may have more side effects. Give your health care provider a list of all medicines you use. Your doctor will tell you how much medicine to take. Do not take more medicine than directed. Call emergency for help if you have problems breathing. The medicine will cause constipation. Try to have a bowel movement at least every 2 to 3 days. If you do not have a bowel movement for 3 days, call your doctor or health lawn care professional. Too much acetaminophen can be very dangerous. Do not take Tylenol (acetaminophen) or medicines that contain acetaminophen with this medicine. Many non-prescription medicines contain acetaminophen. Always read the labels carefully. You have been given the following additional information: Contusion, Foot Diphtheria Toxoid Adsorbed, Pertussis Vaccine, Acellular (Adsorbed), Tetanus Toxoid, Adsorbed Suspension for injection Hydrocodone Bitartrate, Acetaminophen Oral tablet No driving or operating machinery while taking medication. Sedative medication was given during your visit. You may walk and bear weight as tolerated. (Electronically signed by Dylan Mcrae MD 03/03/2017 2:48)
== END 2017-03-01 10:10 | disposition home or self-care (01) ==
LOC: ED SRH 08:11
DX: S90.31XA Contusion of right foot, initial encounter (principal); W20.8XXA Other cause of strike by thrown, projected or falling object, initial encounter; Y93.9 Activity, unspecified; Y92.410 Unspecified street and highway as the place of occurrence of the external cause; Y99.8 Other external cause status; I10 Essential (primary) hypertension; E11.9 Type 2 diabetes mellitus without complications; F17.210 Nicotine dependence, cigarettes, uncomplicated; Z79.84 Long term (current) use of oral hypoglycemic drugs; Z79.899 Other long term (current) drug therapy

== ENCOUNTER 2017-04-16 19:29 | Emergency (ER) | payer OTHER ==
--- NOTE | 2017-04-16 21:47 | ED ORDER SUMMARY ---
..... Patient: EDA SKY OrderSheet [facility] VisitID: [id number] [address] [place] [address] 52y, M Registration Date/Time: 04/16/2017 ORDER SHEET Weight: 122.4 kg (stated) Allergies: No Known Drug Allergy GENERAL ORDERS: Lumbar Spine 2 or 3V Urgent (19:46 04/16/2017 EKoroleva P.A.-C) (Ack 19:47 [facility] [employer] [employer]or) (20:29 JQuivey R.N.) Thoracic Spine 2V Urgent (19:46 04/16/2017 EKoroleva P.A.-C) (Ack 19:47 [facility] [employer]) (20:30 JQuivey R.N.) POC Glucose (20:31 04/16/2017 EKoroleva P.A.-C) (20:36 JQuivey R.N.) MEDICATION ORDERS: Percocet PO 5/325 mg (HIGH ALERT MEDICATION, NOW) (19:46 04/16/2017 EKoroleva P.A.-C) (Ack 19:50 JQuivey R.N.) (19:53 JQuivey R.N.) IV FLUIDS: ORDER SHEET NOTES: [Electronically signed by Delicia DelongA.-C (22:28 04/16/2017)] [Electronically signed by Dillon Loredo R.N. (00:24 04/17/2017)] [Electronically locked/signed by Dillon Loredo R.N. (00:24 04/17/2017)]
--- NOTE | 2017-04-16 21:47 | ED CLINICAL REPORT ---
Clinical Report - Physicians/Mid Levels [facility] [address] [place] [address] 04/16/2017 19:30 Patient: EDA SKY Time Seen: 19:47 Keo 2016. Arrived- By ambulance. Historian- EMS personnel. HISTORY OF PRESENT ILLNESS Chief Complaint: FALL. Location of injuries- (low back). The injury occurred just prior to arrival. Fell. No fainting episodes. Occurred on a street. The patient complains of moderate pain. No neck pain or loss of consciousness. Not dazed. (Patient reports his right leg has been bothersome, and doing an problems, which gave out and he fell onto a curb. Patient denies LOC. Denies head injury or headache. Patient). REVIEW OF SYSTEMS No loss of vision, hearing loss or laceration. He has no pain on weight bearing. All systems otherwise negative, except as recorded above. PAST HISTORY See nurses notes. Problems: Diabetes Mellitus [Active]. Contusion. Lumbar Radiculopathy. Hemorrhoids. Abscess. Head Injury. Hypercholesterolemia. Sprain. Neck Pain. Depression. Chronic Back Pain. Back Injury. Neck Injury. Fall. Cervical Strain. Myofascial Strain. Gastroesophageal Reflux. Insomnia. Upper Extremity Pain. Carpal Tunnel Syndrome. Hypertension. Tetanus Status. Acute Pain. Immunizations. Diabetes Mellitus. Additional Surgeries: Left thumb partial amputation. Right ankle surgery after fx. Tonsillectomy & Adenoidectomy. Medications: Lantus Subcutaneous 30 units, at bedtime. Lipizide 10 mg daily. Lisinopril 10 mg daily. Lovastatin daily . Metformin 1000 mg BID. Omeprazole 20 mg bid. Paxil Oral 37.5 mg, daily. Allergies: No Known Drug Allergy. SOCIAL HISTORY Smoker- current status unknown. No alcohol use or drug use. ADDITIONAL NOTES The nursing notes have been reviewed. PHYSICAL EXAM Vital Signs: 04/16/2017 19:44 BP: 137/88. HR: 83. RR: 16. O2 saturation: 98%. Temp: 99 F. Pain level now: 8/10. Appearance: Alert. No acute distress. No backboard or C-collar. Eyes: Pupils equal, round and reactive to light. EOM intact. Neck: Painless ROM. No vertebral tenderness. Anterior neck: (r/ lateral). Posterior neck: No tenderness or swelling. CVS: Heart sounds normal. Pulses normal. Rhythm normal. Respiratory: Chest wall. No tenderness. No swelling. Breath sounds normal. Chest nontender. No chest wall injury, decreased breath sounds or rales. Abdomen: No visible injury. No abdominal tenderness. Back: Mild vertebral tenderness in the right lower and left lower thoracic area and lumbar area. Skin: Skin intact. Skin warm. Extremities: Right clavicle area. No tenderness or swelling. Right shoulder: tenderness. No swelling. No limitation in ROM. Pelvis stable. Neuro: Rk Coma Scale: 15- eyes open spontaneously (4); best verbal response- oriented x 3 (5); best motor response- obeys commands (6). LABS, X-RAYS, AND EKG T-Spine X-rays: (IMPRESSION: 1. Questionable vertebral body height loss of T5, chronicity uncertain. This may be artifactual due to projection. Clinical correlation recommended and consider MRI for ongoing or correlating symptoms. Electronically Final signed by:Nereyda Hawkins MD 04/16/2017 10:00:50 PM). LS-Spine X-rays: (IMPRESSION: 1. Intact lumbar spine. 2. Chronic mild degenerative changes as described. No significant progression. Electronically Final signed by:Nereyda Hawkins MD 04/16/2017 10:26:52 PM). PROGRESS AND PROCEDURES Course of Care: Patient with chronic low back pain, betsy report reviewed. no signs of acute new injury such as fracture. Patient with a mechanical fall after right lower extremity pain. Able to ambulate here in the emergency department with no problems. Full range of motion of the right shoulder, and cervical spine. Patient very stable. All palpation otherwise. There are no risks for spinal epidural abscess or hematoma as patient is without any risk factors such as IVDA or evidence of active infection, no midline tenderness to percussion. Hence I do not feel emergent imaging with an MRI is indicated. However I did discuss with the patient that if these symptoms develop, or if the pain does not resolve an MRI may need to be done outpatient, or in the ED if symptoms worsen acutely or new onset of the above mentioned symptoms develop. 04/16/2017 21:50 BP: 128/88. HR: 77. RR: 16. O2 saturation: 100%. Pain level now: 5/10. Patient is stable. Symptoms better. Patient/family counseled. Disposition: Discharged. Condition: good. CLINICAL IMPRESSION Acute and chronic traumatic lumbar back pain. Contusion to the right shoulder. Fall. INSTRUCTIONS Apply ice. No strenuous activity. You may walk and bear weight as tolerated. Prescription Medications: Hydrocodone/APAP 5mg / 325mg: take 1 orally every 6 hours as needed for pain. Dispense ten (10). No refill. Follow-up: Follow up with your doctor Wednesday. (Electronically signed by Delicia Delong P.A.-C 04/16/2017 22:28)
--- NOTE | 2017-04-16 21:47 | ED NURSING NOTES ---
Clinical Report - Nurses [place] [address] [place] [address] 04/16/2017 19:30 [id number] Triage time 19:44. Acuity: LEVEL 4. Chief Complaint: FALL. 19:50. Alert. ELIOSA COMA SCORE: Loris Coma Scale: 15- eyes open spontaneously (4); best verbal response- oriented x 4 (5); best motor response- obeys commands (6). --19:50 Dillon Loredo R.N. 19:44 04/16/17. BP: 137/88. HR: 83. RR: 16. O2 saturation: 98%. Temp: 99 F (oral). Pain level now: 810. --19:50 Dillon Loredo R.N. Weight: 122.4 kg stated. Height/Length: 74 inches Per Patient. BMI: 34.7. --19:50 Dillon Loredo R.N. Medications Lantus Subcutaneous 30 units, at bedtime. Lipizide 10 mg daily. Lisinopril 10 mg daily. Lovastatin daily . Metformin 1000 mg BID. Omeprazole 20 mg bid. Paxil Oral 37.5 mg, daily. --19:46 Dillon Loredo R.N. Allergies No Known Drug Allergy. --19:46 Dillon Loredo R.N. History Arrived by EMS. Historian: patient. Primary physician ([place]). Location of injuries: back, right thigh, right knee and right leg. This occurred ([address] [employer]CRE[employer]). Occurred ([employer] parking lot). Trauma activation: Pre-hospital notification of patient arrival was received. Treatment PARKS RECREATION DIRECTOR: EMS treatment PARKS RECREATION DIRECTOR verbally communicated. PAST MEDICAL HX: Tetanus status: up-to-date. Immunizations: up-to-date. SOCIAL HX: Current every day heavy tobacco smoker- less than 1 pack per day. No alcohol use or drug use. No infectious disease exposure. ABUSE ASSESSMENT: No report of abuse. FALL RISK ASSESSMENT: Fall risk assessment completed. No fall risk identified. NUTRITIONAL RISK ASSESSMENT: The nutritional risk assessment revealed no deficiencies. FUNCTIONAL ASSESSMENT: Functional assessment: no impairments noted. LEARNING NEEDS ASSESSMENT: The learning needs assessment revealed no barriers. SKIN INTEGRITY ASSESSMENT: Skin integrity risk assessment completed. No skin integrity risk identified. --19:50 Dillon Loredo R.N. PROBLEMS: Hemorrhoids. Abscess. Hypercholesterolemia. Back Pain. Depression. Chronic Back Pain. Carpal Tunnel Syndrome. Hypertension. Diabetes Mellitus. --19:47 Dillon Loredo R.N. ADDITIONAL SURGERIES: Left thumb partial amputation. Right ankle surgery after fx. Tonsillectomy & Adenoidectomy. --19:47 Dillon Loredo R.N. Interventions ID band on patient. To treatment room. --19:50 Dillon Loredo R.N. PHYSICAL ASSESSMENT 19:48. To room via stretcher. GENERAL / NEURO / PSYCH: Alert. Oriented X 4. RESPIRATORY: Respirations not labored. SKIN: Skin intact. Skin is warm and dry. --19:48 Dillon Loredo R.N. NURSING PROGRESS NOTES 19:49. Two patient identifiers checked. Call light placed in reach. Bed placed in lowest position. Brakes of bed on. Patient ready for evaluation- chart flagged. --19:49 Dillon Loredo R.N. 19:53 04/16/2017 Percocet (Oxycodone-Acetaminophen) PO 5/325 mg Tablets 1 tab given. Allergies verified, confirmed 5 rights and sedative warning given to the patient. --19:53 Dillon Loredo R.N. 20:21. Patient transported to radiology by stretcher with tech. --20:29 Dillon Loredo R.N. 20:29. Patient returned from radiology by stretcher with tech. --20:29 Dillon Loredo R.N. 20:37 Patient given water with ice. --20:38 Dillon Loredo R.N. 20:41. Point of care testing: performed by nurse. Glucose: 135. --20:43 Dillon Loredo R.N. 21:23 Patient walk tested with ED VINCE Delong. --21:28 Dillon Loredo R.N. 21:53. The patient is calm and resting quietly. GENERAL / NEURO / PSYCH: Alert. Oriented X 4. RESPIRATORY: No respiratory distress. EXTREMITIES: Neuro-vascular status intact to the extremity. --21:55 Dillon Loredo R.N. DISPOSITION / DISCHARGE Departure time: 21:55. Condition at departure: stable. No learning barriers present. Discharge instructions provided and reviewed with the patient. Reviewed medication(s) side effects, precautions, dosing and course information. Patient verbalized understanding. Written instructions provided in Arabic. The patient was discharged home and accompanied by wave guide assembler. He left the Emergency Department ambulatory and via private vehicle. Safe Deposit Box Rental Clerk driving. FALL RISK ASSESSMENT: Fall risk assessment completed. No fall risk identified. --21:55 Dillon Loredo R.N. 21:50 04/16/17. BP: 128/88. HR: 77. RR: 16. O2 saturation: 100% on room air. Pain level now: 03/17. --21:55 Dillon Loredo R.N. Locked/Released at 04/17/2017 0:24 by Dillon Loredo R.N.
--- NOTE | 2017-04-16 21:47 | ED ORDER SUMMARY ---
..... Patient: EDA SKY OrderSheet [facility] VisitID: [id number] [address] [place] [address] 52y, M Registration Date/Time: 04/16/2017 ORDER SHEET Weight: 122.4 kg (stated) Allergies: No Known Drug Allergy GENERAL ORDERS: Lumbar Spine 2 or 3V Urgent (19:46 04/16/2017 EKoroleva P.A.-C) (Ack 19:47 [facility] [employer] Program Director) (20:29 JQuivey R.N.) Thoracic Spine 2V Urgent (19:46 04/16/2017 EKoroleva P.A.-C) (Ack 19:47 [facility] School Program Director) (20:30 JQuivey R.N.) POC Glucose (20:31 04/16/2017 EKoroleva P.A.-C) (20:36 JQuivey R.N.) MEDICATION ORDERS: Percocet PO 5/325 mg (HIGH ALERT MEDICATION, NOW) (19:46 04/16/2017 EKoroleva P.A.-C) (Ack 19:50 JQuivey R.N.) (19:53 JQuivey R.N.) IV FLUIDS: ORDER SHEET NOTES: [Electronically signed by Delicia DelongA.-C (22:28 04/16/2017)] [Electronically signed by Dillon Loredo R.N. (00:24 04/17/2017)] [Electronically locked/signed by Dillon Loredo R.N. (00:24 04/17/2017)]
--- NOTE | 2017-04-16 21:47 | ED NURSING NOTES ---
Clinical Report - Nurses [place] [address] [place] [address] 04/16/2017 19:30 [id number] Triage time 19:44. Acuity: LEVEL 4. Chief Complaint: FALL. 19:50. Alert. ELOISA COMA SCORE: [place] Coma Scale: 15- eyes open spontaneously (4); best verbal response- oriented x 4 (5); best motor response- obeys commands (6). --19:50 Dillon Loredo R.N. 19:44 04/16/17. BP: 137/88. HR: 83. RR: 16. O2 saturation: 98%. Temp: 99 F (oral). Pain level now: 810. --19:50 Dillon Loredo R.N. Weight: 122.4 kg stated. Height/Length: 74 inches Per Patient. BMI: 34.7. --19:50 Dillon Loredo R.N. Medications Lantus Subcutaneous 30 units, at bedtime. Lipizide 10 mg daily. Lisinopril 10 mg daily. Lovastatin daily . Metformin 1000 mg BID. Omeprazole 20 mg bid. Paxil Oral 37.5 mg, daily. --19:46 Dillon Loredo R.N. Allergies No Known Drug Allergy. --19:46 Dillon Loredo R.N. History Arrived by EMS. Historian: patient. Primary physician ([place]). Location of injuries: back, right thigh, right knee and right leg. This occurred ([address] STORE ASSOCIATE). Occurred ([employer] parking lot). Trauma activation: Pre-hospital notification of patient arrival was received. Treatment STORE ASSOCIATE: EMS treatment STORE ASSOCIATE verbally communicated. PAST MEDICAL HX: Tetanus status: up-to-date. Immunizations: up-to-date. SOCIAL HX: Current every day heavy tobacco smoker- less than 1 pack per day. No alcohol use or drug use. No infectious disease exposure. ABUSE ASSESSMENT: No report of abuse. FALL RISK ASSESSMENT: Fall risk assessment completed. No fall risk identified. NUTRITIONAL RISK ASSESSMENT: The nutritional risk assessment revealed no deficiencies. FUNCTIONAL ASSESSMENT: Functional assessment: no impairments noted. LEARNING NEEDS ASSESSMENT: The learning needs assessment revealed no barriers. SKIN INTEGRITY ASSESSMENT: Skin integrity risk assessment completed. No skin integrity risk identified. --19:50 Dillon Loredo R.N. PROBLEMS: Hemorrhoids. Abscess. Hypercholesterolemia. Back Pain. Depression. Chronic Back Pain. Carpal Tunnel Syndrome. Hypertension. Diabetes Mellitus. --19:47 Dillon Loredo R.N. ADDITIONAL SURGERIES: Left thumb partial amputation. Right ankle surgery after fx. Tonsillectomy & Adenoidectomy. --19:47 Dillon Loredo R.N. Interventions ID band on patient. To treatment room. --19:50 Dillon Loredo R.N. PHYSICAL ASSESSMENT 19:48. To room via stretcher. GENERAL / NEURO / PSYCH: Alert. Oriented X 4. RESPIRATORY: Respirations not labored. SKIN: Skin intact. Skin is warm and dry. --19:48 Dillon Loredo R.N. NURSING PROGRESS NOTES 19:49. Two patient identifiers checked. Call light placed in reach. Bed placed in lowest position. Brakes of bed on. Patient ready for evaluation- chart flagged. --19:49 Dillon Loredo R.N. 19:53 04/16/2017 Percocet (Oxycodone-Acetaminophen) PO 5/325 mg Tablets 1 tab given. Allergies verified, confirmed 5 rights and sedative warning given to the patient. --19:53 Dillon Loredo R.N. 20:21. Patient transported to radiology by stretcher with tech. --20:29 Dillon Loredo R.N. 20:29. Patient returned from radiology by stretcher with tech. --20:29 Dillon Loredo R.N. 20:37 Patient given water with ice. --20:38 Dillon Loredo R.N. 20:41. Point of care testing: performed by nurse. Glucose: 135. --20:43 Dillon Loredo R.N. 21:23 Patient walk tested with ED VINCE Delong. --21:28 Dillon Loredo R.N. 21:53. The patient is calm and resting quietly. GENERAL / NEURO / PSYCH: Alert. Oriented X 4. RESPIRATORY: No respiratory distress. EXTREMITIES: Neuro-vascular status intact to the extremity. --21:55 Dillon Loredo R.N. DISPOSITION / DISCHARGE Departure time: 21:55. Condition at departure: stable. No learning barriers present. Discharge instructions provided and reviewed with the patient. Reviewed medication(s) side effects, precautions, dosing and course information. Patient verbalized understanding. Written instructions provided in Irish. The patient was discharged home and accompanied by flue dust laborer. He left the Emergency Department ambulatory and via private vehicle. Child Care Coordinator driving. FALL RISK ASSESSMENT: Fall risk assessment completed. No fall risk identified. --21:55 Dillon Loredo R.N. 21:50 04/16/17. BP: 128/88. HR: 77. RR: 16. O2 saturation: 100% on room air. Pain level now: 03/17. --21:55 Dillon Loredo R.N. Locked/Released at 04/17/2017 0:24 by Dillon Loredo R.N.
--- NOTE | 2017-04-16 22:00 | DIAGNOSTIC IMAGING REPORT ---
PROCEDURE: XR THORACIC SPINE 2 VIEWS INDICATION: Fall TECHNIQUE: Two views of the thoracic spine COMPARISON: None. FINDINGS: 12 thoracic vertebral bodies are normal in alignment. There is mild, questionable central and posterior vertebral body height loss of T5. Very slight anterior wedge deformity of T8. Mild anterior and lateral bridging osteophytes from T7-T10. No disc height loss. Paraspinal soft tissue stripes are within normal limits. IMPRESSION: 1. Questionable vertebral body height loss of T5, chronicity uncertain. This may be artifactual due to projection. Clinical correlation recommended and consider MRI for ongoing or correlating symptoms.
--- NOTE | 2017-04-16 22:26 | DIAGNOSTIC IMAGING REPORT ---
PROCEDURE: XR LUMBAR SPINE 2 OR 3 VIEWS INDICATION: Fall on the right side TECHNIQUE: Three views of the lumbar spine COMPARISON: 05/03/2015 FINDINGS: Five lumbar-type vertebral bodies are present. Normal vertebral body height without fracture. Minor anterior wedging deformity of T12, chronic. Moderate anterior and slight lateral endplate spurring mainly at L4-5, chronic. There is slight leftward curvature. Normal AP alignment. Moderate disc height loss posteriorly at L5-S1 without significant progression. Facet hypertrophy and sclerosis at L5-S1. The visible osseous pelvis and bowel gas pattern are normal. IMPRESSION: 1. Intact lumbar spine. 2. Chronic mild degenerative changes as described. No significant progression.
--- NOTE | 2017-04-17 00:24 | ED MED RECONCILIATION SUMMARY ---
Patient: EDA SKY Medication Reconciliation Report [facility] VisitID: [id number] [address] [place] [address] 52y, M Registration Date/Time: 04/16/2017 Weight: 122.4 kg Height/Length: 74 in. BMI: 34.7 ALLERGIES: No Known Drug Allergy The patient's Home Medications are listed below: THE FOLLOWING MEDICATIONS NEED TO BE RECONCILED: Lantus Subcutaneous 30 units, at bedtime Lipizide 10 mg daily Lisinopril 10 mg daily Lovastatin daily Metformin 1000 mg BID Omeprazole 20 mg bid Paxil Oral 37.5 mg, daily The source(s) of the original Home Medication information: Not obtained. The following Medications were given to the patient in the Emergency Department: Percocet [PO] PO 1 tab, administered: 04/16/2017 7:53:00 PM The following Medications were prescribed to the patient: Hydrocodone/APAP 5mg / 325mg: take 1 orally every 6 hours as needed for pain. Dispense ten (10). No refill. -- Delicia Delong P.A.-C
--- NOTE | 2017-04-17 00:24 | ED MED RECONCILIATION SUMMARY ---
Patient: EDA SKY Medication Reconciliation Report [facility] VisitID: [id number] [address] [place] [address] 52y, M Registration Date/Time: 04/16/2017 Weight: 122.4 kg Height/Length: 74 in. BMI: 34.7 ALLERGIES: No Known Drug Allergy The patient's Home Medications are listed below: THE FOLLOWING MEDICATIONS NEED TO BE RECONCILED: Lantus Subcutaneous 30 units, at bedtime Lipizide 10 mg daily Lisinopril 10 mg daily Lovastatin daily Metformin 1000 mg BID Omeprazole 20 mg bid Paxil Oral 37.5 mg, daily The source(s) of the original Home Medication information: Not obtained. The following Medications were given to the patient in the Emergency Department: Percocet [PO] PO 1 tab, administered: 04/16/2017 7:53:00 PM The following Medications were prescribed to the patient: Hydrocodone/APAP 5mg / 325mg: take 1 orally every 6 hours as needed for pain. Dispense ten (10). No refill. -- Delicia Delong P.A.-C
--- NOTE | 2017-04-17 00:24 | ED MAR SUMMARY ---
..... Medication Administration Record [facility] [address] [place] [address] Patient: EDA SKY Visit ID: [id number] 52y, M Weight: 122.4 kg Height/Length: 74 in BMI: 34.7 ALLERGIES: No Known Drug Allergy Given 19:53 04/16/2017 Dillon Loredo R.N. Medication Administered: PERCOCET [PO] (OXYCODONE-ACETAMINOPHEN), Dose: 1 tab 5/325 mg Tablets PO. Medication Ordered: Percocet PO 5/325 mg (HIGH ALERT MEDICATION, NOW).
--- NOTE | 2017-04-17 00:24 | ED MAR SUMMARY ---
..... Medication Administration Record [facility] [address] [place] [address] Patient: EDA SKY Visit ID: [id number] 52y, M Weight: 122.4 kg Height/Length: 74 in BMI: 34.7 ALLERGIES: No Known Drug Allergy Given 19:53 04/16/2017 Dillon Loredo R.N. Medication Administered: PERCOCET [PO] (OXYCODONE-ACETAMINOPHEN), Dose: 1 tab 5/325 mg Tablets PO. Medication Ordered: Percocet PO 5/325 mg (HIGH ALERT MEDICATION, NOW).
--- NOTE | 2017-04-17 00:24 | ED DISCHARGE INSTRUCTIONS ---
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 Contusion to the right shoulder. Fall. INSTRUCTIONS Apply ice. No strenuous activity. You may walk and bear weight as tolerated. Prescription Medications: Hydrocodone/APAP 5mg / 325mg: take 1 orally every 6 hours as needed for pain. Dispense ten (10). No refill. Follow-up: Follow up with your doctor Wednesday. ADDITIONAL INFORMATION Mechanical Fall You have had a fall today. It appears that the cause is mechanical. That means that you slipped, tripped or lost your balance. If your fall had been due to fainting or a seizure, further tests would be required. Home Care: Rest today and resume your normal activities when you are feeling back to normal. If you were injured during the fall, follow the advice from your doctor regarding care of your injury. You may use acetaminophen (Tylenol) or ibuprofen (Motrin, Advil) to control pain, unless another pain medicine was prescribed. [NOTE: If you have chronic liver or kidney disease or ever had a stomach ulcer or GI bleeding, talk with your doctor before using these medicines.] Fall Prevention: Was there anything that caused your fall that can be fixed, removed, or replaced? Make your home safe by keeping walkways clear of objects you may trip over. Use non-slip pads under rugs. Do not walk in poorly lit areas. Do not stand on chairs or wobbly ladders. Use caution when reaching overhead or looking upward. This position can cause a loss of balance. Be sure your shoes fit properly, have non-slip bottoms and are in good condition. Be cautious when going up and down curbs, and walking on uneven sidewalks. If your balance is poor, consider using a cane or walker. Stay as active as you can. Balance, flexibility, strength, and endurance all come from exercise. They all play a role in preventing falls. Follow Up with your doctor or as advised by our staff. Get Prompt Medical Attention if any of the following occur: Repeated mechanical falls, or unexplained falls Dizziness, fainting or seizure Severe headache Chest pain or shortness of breath Palpitations (very rapid or very slow or irregular heartbeat) Blood in vomit, stools (black or red color) Weakness of an arm or leg or one side of the face Difficulty with speech or vision Back Pain [Acute Or Chronic] Back pain is usually caused by an injury to the muscles or ligaments of the spine. Sometimes the disks that separate each bone in the spine may bulge and cause pain by pressing on a nearby nerve. Back pain may also appear after a sudden twisting/bending force (such as in a car accident), after a simple awkward movement, or lifting something heavy with poor body positioning. In either case, muscle spasm is often present and adds to the pain. Acute back pain usually gets better in one to two weeks. Back pain related to disk disease, arthritis in the spinal joints or spinal stenosis (narrowing of the spinal canal) can become chronic and last for months or years. Unless you had a physical injury (for example, a car accident or fall) X-rays are usually not ordered for the initial evaluation of back pain. If pain continues and does not respond to medical treatment, x-rays and other tests may be performed at a later time. Home Care: You may need to stay in bed the first few days. But, as soon as possible, begin sitting or walking to avoid problems with prolonged bed rest (muscle weakness, worsening back stiffness and pain, blood clots in the legs). When in bed, try to find a position of comfort. A firm mattress is best. Try lying flat on your back with pillows under your knees. You can also try lying on your side with your knees bent up towards your chest and a pillow between your knees. Avoid prolonged sitting. This puts more stress on the lower back than standing or walking. During the first two days after injury, apply an ICE PACK to the painful area for 20 minutes every 2-4 hours. This will reduce swelling and pain. HEAT (hot shower, hot bath or heating pad) works well for muscle spasm. You can start with ice, then switch to heat after two days. Some patients feel best alternating ice and heat treatments. Use the one method that feels the best to you. You may use acetaminophen (Tylenol) or ibuprofen (Motrin, Advil) to control pain, unless another pain medicine was prescribed. [NOTE: If you have chronic liver or kidney disease or ever had a stomach ulcer or GI bleeding, talk with your doctor before using these medicines.] Be aware of safe lifting methods and do not lift anything over 15 pounds until all the pain is gone. Follow Up with your doctor or this facility if your symptoms do not start to improve after one week. Physical therapy may be needed. [NOTE: If X-rays were taken, they will be reviewed by a radiologist. You will be notified of any new findings that may affect your care.] Get Prompt Medical Attention if any of the following occur: Pain becomes worse or spreads to your legs Weakness or numbness in one or both legs Loss of bowel or bladder control Numbness in the groin or genital area Sciatica Sciatica ("Lumbar Radiculopathy") causes a pain that spreads from the lower back down into the buttock, hip and leg. Sometimes leg pain can occur without any back pain. Sciatica is due to irritation or pressure on a spinal nerve as it comes out of the spinal canal. This is most often due to a bulge or rupture of a nearby spinal disk (the cartilage cushion between each spinal bone), which presses on a nearby nerve. Other causes include spinal stenosis (narrowing of the spinal canal) and spasm of the pyriform muscle (a muscle in the buttocks that the sciatic nerve passes through). Sciatica may begin after a sudden twisting/bending force (such as in a car accident), or sometimes after a simple awkward movement. In either case, muscle spasm is commonly present and contributes to the pain. The diagnosis of sciatica is made from the symptoms and physical exam. Unless you had a physical injury (such as a car accident or fall), X-rays are usually not ordered for the initial evaluation of sciatica because the nerves and disks cannot be seen on an x-ray. If signs of a compressed nerve are present (for example, loss of tendon reflex or strength in the leg), an MRI (magnetic resonance imaging) scan will need to be scheduled as an outpatient. Most sciatica (80-90%) gets better with medicine, exercise, physical therapy. If symptoms continue after at least three months of medical treatment, surgery may be considered. Home Care: You may need to stay in bed the first few days. But, as soon as possible, begin sitting or walking to avoid problems with prolonged bed rest. When in bed, try to find a position of comfort. A firm mattress is best. Try lying flat on your back with pillows under your knees. You can also try lying on your side with your knees bent up towards your chest and a pillow between your knees. Avoid prolonged sitting. This puts more stress on the lower back than standing or walking. Some persons find relief with heat (hot shower, hot bath or heating pad) and massage, while others prefer cold packs (crushed or cubed ice in a plastic bag, wrapped in a towel). Try both and use the method that feels best for 20 minutes several times a day. You may use acetaminophen (Tylenol) or ibuprofen (Motrin, Advil) to control pain, unless another pain medicine was prescribed. [ NOTE: If you have chronic liver or kidney disease or ever had a stomach ulcer or GI bleeding, talk with your doctor before using these medicines.] Be aware of safe lifting methods and do not lift anything over 15 pounds until all the pain is gone. Follow Up with your doctor or this facility if your symptoms do not start to improve after one week. Physical therapy or further testing may be needed. [NOTE: If X-rays were taken, they will be reviewed by a radiologist. You will be notified of any new findings that may affect your care.] Get Prompt Medical Attention if any of the following occur: Pain becomes worse, not controlled by the prescribed medicine Weakness or numbness in one or both legs Numbness in the groin, genital area Loss of bowel or bladder control Contusion:Upper Extremity You have a contusion of your upper extremity (arm, wrist, hand or fingers). This causes local pain, swelling and sometimes bruising. There are no broken bones. This injury takes a few days to a few weeks to heal. A sling may be provided for comfort and arm support. Home Care: 1) Keep your arm elevated to reduce pain and swelling. This is very important during the first 48 hours. 2) Apply an ice pack (ice cubes in a plastic bag, wrapped in a towel) over the injured area for 20 minutes every 1-2 hours the first day for pain relief. Continue this 3-4 times a day until the pain and swelling goes away. 3) You may use acetaminophen (Tylenol) or ibuprofen (Motrin, Advil) to control pain, unless another pain medicine was prescribed. [ NOTE : If you have chronic liver or kidney disease or ever had a stomach ulcer or GI bleeding, talk with your doctor before using these medicines.] 4) If a sling was provided, you may remove it to shower or bathe. Do not wear it for more than one week or it may cause joint stiffness. Follow Up with your doctor or this facility if you are not starting to improve within the next THREE days. [NOTE: If X-rays were taken, they will be reviewed by a radiologist. You will be notified of any new findings that may affect your care.] Get Prompt Medical Attention if any of the following occur: -- Pain or swelling increases -- Redness, warmth or drainage -- Hand or fingers becomes cold, blue, numb or tingly Contusion: Coccyx Or Sacrum You have a CONTUSION of the coccyx or sacrum. The sacrum is the triangular bone at the base of the spine that joins the pelvic bones. The coccyx (tailbone) is the last bone of the sacrum that hangs down in a point like a small tail. A contusion is a bruise with swelling and some bleeding under the skin. You have no broken bones. This injury takes a few days to a few weeks to heal. A crack (fracture) in the coccyx bone causes the same symptoms as a contusion of this bone. Often, x-rays are not taken of this area since the treatment is the same. A fracture of this bone will take about four weeks to heal. Home Care: Try to find a position of comfort. Try lying on your side with your knees bent up towards your chest and a pillow between your knees. Apply an ice pack (crushed or cubed ice in a plastic bag, wrapped in a towel) for 20 minutes every 2-4 hours during the first two days after a new injury. You may use acetaminophen (Tylenol) or ibuprofen (Motrin, Advil) to control pain, unless another pain medicine was prescribed. [ NOTE: If you have chronic liver or kidney disease or ever had a stomach ulcer or GI bleeding, talk with your doctor before using these medicines.] A bruised tailbone causes pain when sitting. You may try using a "donut pillow" which is a foam pillow that has a hole in the center to prevent pressure on the tailbone. You can obtain this at a pharmacy or orthopedic supply store. Follow Up with your doctor or this facility if your symptoms do not start to improve after one week. [NOTE: If X-rays were taken, they will be reviewed by a radiologist. You will be notified of any new findings that may affect your care.] Get Prompt Medical Attention if any of the following occur: Pain becomes worse or spreads to one or both legs Weakness or numbness in one or both legs Loss of bowel or bladder control Numbness in the groin area Redness, warmth or drainage from the skin Hydrocodone Bitartrate, Acetaminophen Oral tablet What is this medicine? ACETAMINOPHEN; HYDROCODONE (a set a JONAH linus fen; luis alfredo droe KOE done) is a pain reliever. It is used to treat mild to moderate pain. How should I use this medicine? Take this medicine by mouth. Swallow it with a full glass of water. Follow the directions on the prescription label. If the medicine upsets your stomach, take the medicine with food or milk. Do not take more than you are told to take. Talk to your oral surgery physician regarding the use of this medicine in children. This medicine is not approved for use in children. What side effects may I notice from receiving this medicine? Side effects that you should report to your doctor or health pulmonary care nurse as soon as possible: allergic reactions like skin rash, itching or hives, swelling of the face, lips, or tongue breathing problems confusion feeling faint or lightheaded, falls stomach pain yellowing of the eyes or skin Side effects that usually do not require medical attention (report to your doctor or health pulmonary care nurse if they continue or are bothersome): nausea, vomiting stomach upset What may interact with this medicine? alcohol antihistamines isoniazid medicines for depression, anxiety, or psychotic disturbances medicines for sleep muscle relaxants naltrexone narcotic medicines (opiates) for pain phenobarbital ritonavir tramadol What if I miss a dose? If you miss a dose, take it as soon as you can. If it is almost time for your next dose, take only that dose. Do not take double or extra doses. Where should I keep my medicine? Keep out of the reach of children. This medicine can be abused. Keep your medicine in a safe place to protect it from theft. Do not share this medicine with anyone. Selling or giving away this medicine is dangerous and against the law. Store at room temperature between 15 and 30 degrees C (59 and 86 degrees F). Protect from light. Keep container tightly closed. Throw away any unused medicine after the expiration date. Discard unused medicine and used packaging carefully. Pets and children can be harmed if they find used or lost packages. What should I tell my health care provider before I take this medicine? They need to know if you have any of these conditions: brain tumor Crohn's disease, inflammatory bowel disease, or ulcerative colitis drink more than 3 alcohol-containing drinks per day drug abuse or addiction head injury heart or circulation problems kidney disease or problems going to the bathroom liver disease lung disease, asthma, or breathing problems an unusual or allergic reaction to acetaminophen, hydrocodone, other opioid analgesics, other medicines, foods, dyes, or preservatives or trying to get breast-feeding What should I watch for while using this medicine? Tell your doctor or health pulmonary care nurse if your pain does not go away, if it gets worse, or if you have new or a different type of pain. You may develop tolerance to the medicine. Tolerance means that you will need a higher dose of the medicine for pain relief. Tolerance is normal and is expected if you take the medicine for a long time. Do not suddenly stop taking your medicine because you may develop a severe reaction. Your body becomes used to the medicine. This does NOT mean you are addicted. Addiction is a behavior related to getting and using a drug for a non-medical reason. If you have pain, you have a medical reason to take pain medicine. Your doctor will tell you how much medicine to take. If your doctor wants you to stop the medicine, the dose will be slowly lowered over time to avoid any side effects. You may get drowsy or dizzy when you first start taking the medicine or change doses. Do not drive, use machinery, or do anything that may be dangerous until you know how the medicine affects you. Stand or sit up slowly. There are different types of narcotic medicines (opiates) for pain. If you take more than one type at the same time, you may have more side effects. Give your health care provider a list of all medicines you use. Your doctor will tell you how much medicine to take. Do not take more medicine than directed. Call emergency for help if you have problems breathing. The medicine will cause constipation. Try to have a bowel movement at least every 2 to 3 days. If you do not have a bowel movement for 3 days, call your doctor or health pulmonary care nurse. Too much acetaminophen can be very dangerous. Do not take Tylenol (acetaminophen) or medicines that contain acetaminophen with this medicine. Many non-prescription medicines contain acetaminophen. Always read the labels carefully. You have been given the following additional information: Fall, Mechanical Back Pain (Acute Or Chronic) Back Pain W/ Sciatica Contusion, Upper Extremity Contusion, Coccyx/Sacrum Hydrocodone Bitartrate, Acetaminophen Oral tablet No strenuous activity. You may walk and bear weight as tolerated. (Electronically signed by Delicia Delong P.A.-C 04/16/2017 22:28)
== END 2017-04-16 21:55 | disposition home or self-care (01) ==
LOC: ED SRH 19:29
DX: S39.92XA Unspecified injury of lower back, initial encounter (principal); Z79.899 Other long term (current) drug therapy; S40.011A Contusion of right shoulder, initial encounter; W19.XXXA Unspecified fall, initial encounter; Y93.9 Activity, unspecified; Y92.9 Unspecified place or not applicable; Y99.9 Unspecified external cause status; E11.9 Type 2 diabetes mellitus without complications; I10 Essential (primary) hypertension; K21.9 Gastro-esophageal reflux disease without esophagitis
CPT/HCPCS: 90098

== ENCOUNTER 2017-05-26 13:49 | Outpatient (CLI) | payer OTHER | END 2017-05-26 23:00 | LOC: LAB SRH 13:49 | DX: M10.9 Gout, unspecified (principal) | CPT/HCPCS: 90074; 92860; 95150 ==